=== PATIENT | female | born 1960 | race Caucasian/White ===

== ENCOUNTER 2018-01-06 20:42 | Inpatient (IN) | payer SELFPAY ==
[2018-01-06] MEDS ORDERED: RSI MEDICATION KIT IV ONE (21:03)
[2018-01-06] MEDS ORDERED: PROPOFOL 1,000 MG/100 ML VIAL IV ONE (21:17)
[2018-01-06] MEDS ORDERED: NA CHLORIDE 0.9% 1,000 ML ONE ×2 (21:21→23:47)
--- NOTE | 2018-01-06 21:27 | RAD REPORT ---
EXAM DESCRIPTION: Mitchell Single View01/06/2018 9:13 pm CLINICAL HISTORY: Chest pain COMPARISON: none FINDINGS: The lungs appear clear of acute infiltrate. The heart is normal size. The lungs are hyper aerated Postsurgical changes involve the chest. An endotracheal tube has its tip several centimeters above the marline. An orogastric tube is present within the stomach. The tip is not included in the field of view and likely either lies within distal stomach or proximal duodenum
[2018-01-06] MEDS ORDERED: ALBUTEROL 2.5 MG/3 ML NEB SOL ONE (21:28)
[2018-01-06 21:34] LABS: Absolute Lymphocytes (CBC) 7.3 K/uL (0.7-4.9); Absolute Monocytes 0.4 K/uL (0.1-1.3); Absolute Neutrophil 6.2 K/uL (1.8-8.0); Basophils % 0.5 % (0-1.3); Eosinophils % 0.9 % (0-4.4); Lymphocytes % 51.8 % (15.3-44.8); MCH 30.5 pg (27.0-35.0); MCV 92.8 fL (80-100); MPV 9.7 fL (7.6-11.3); Monocytes % 3.1 % (3.3-12.3); RBC Red Blood Cell Count 4.63 M/uL (3.86-4.86)
[2018-01-06] MEDS ORDERED: MIDAZOLAM HCL 2 MG/2 ML INJ ONE ×2 (21:39→23:19)
[2018-01-06 21:40] LABS: Protime INR 1.04
[2018-01-06 21:41] LABS: Urine Blood 1+ (NEG); Urine Glucose NEGATIVE (NEG); Urine Protein 2+ (NEG); Urine Specific Gravity 1.025 (1.005-1.030)
[2018-01-06 21:48] LABS: Potassium 5.3 mEq/L (3.6-5.0)
[2018-01-06 21:56] LABS: Albumin 3.4 g/dL (3.2-5.5); Bilirubin Direct 0.2 mg/dL (0-0.2); Bilirubin Total 0.5 mg/dL (0.3-1.2); Magnesium 2.2 mg/dL (1.8-2.5); Protein, Total 5.9 g/dL (6.0-8.3)
[2018-01-06] MEDS ORDERED: FOSPHENYTOIN PE 500 MG/10 ML VIAL ONE (21:57)
[2018-01-06] MEDS ORDERED: NA CHLORIDE 0.9% 100 ML IV ONE (21:57)
[2018-01-06] MEDS ORDERED: LEVETIRACETAM 500 MG/5 ML VIAL IV ONE (21:59)
[2018-01-06 22:14] LABS: Blood Morphology Comment NOT SEEN (NOT SEEN); Platelet Estimate ADEQ
[2018-01-06] MEDS ORDERED: MIDAZOLAM HCL 100 MG/NS 100 ML IV PRN ×2 (22:32)
[2018-01-06] MEDS ORDERED: FENTANYL/NS PCA 500 MCG/50 ML SYR IV PRN (22:33)
[2018-01-06] MEDS ORDERED: FENTANYL CITR 100 MCG/2 ML ONE (23:19)
[2018-01-06] MEDS ORDERED: PIPER/TAZO/NS 3.375gm 3.375 GM/100 ML BAG ONE (23:47)
--- NOTE | 2018-01-06 23:54 | ER ---
Nurse's Notes [facility] Name: Ave Mckeon Age: 57 yrs Sex: Female : 1960 Arrival Date: 01/06/2018 Time: 20:48 Bed 3 Private MD: Diagnosis: Cardiac arrest Presentation: 01/06 20:40 Presenting complaint: EMS states: Patient had unknown down time after receiving tone of lp1 patient feeling short of breath, CPR initiated at 1999, ROSC at 2039 after 6 rounds of Epinephrine, 80 of Bicarb; intubated;. Transition of care: patient was not received from another setting of care. Onset of symptoms was 1999. Care prior to arrival: Assisted ventilation, Oral intubation, CPR performed by EMS Glucose check: 173 IO to right leg. 20:40 Method Of Arrival: EMS: [facility] lp1 20:40 Acuity: DHAVAL 1 lp1 DEVELOPMENT ADVISOR: 01/07 00:13 Unknown DEVELOPMENT ADVISOR lp1 Historical: - Allergies: 01/06 23:09 Unable to obtain; lp1 - Home Meds: 23:09 Unable to obtain [Active]; lp1 - PMHx: 20:54 COPD; lp1 23:09 Myocardial infarction; CVA; lp1 - PSHx: 23:09 Unable to obtain; lp1 - Immunization history:: Adult Immunizations unknown. - Social history:: Smoking status: unknown. Screenin:26 Abuse screen: Denies threats or abuse. Denies injuries from another. Fall Risk Total lp1 Taylor Fall Scale indicates High Risk Score (45 or more points). Fall prevention measures have been instituted. Side Rails Up X 2 Placed Close to Nursing Station Frequent Obs/Assessments Occuring. 23:09 Nutritional screening: No deficits noted. Tuberculosis screening: No symptoms or risk lp1 factors identified. Assessment: 21:00 General: Appears Unresponsive. Behavior is unresponsive. Pain: Unable to use pain lp1 scale. Patient is intubated. Neuro: Level of Consciousness is unresponsive, Pupils are sluggish. Cardiovascular: Heart tones present Capillary refill is brisk in bilateral fingers toes Rhythm is sinus rhythm. Respiratory: Airway via oral intubation Trachea midline Respiratory effort is even, Respiratory pattern is symmetrical, Breath sounds are diminished bilaterally. GI: Abdomen is obese, Oral gastric tube in place, to suction. Bowel sounds present X 4 quads. : Mitchell in place to gravity drainage. EENT:. EENT: No deficits noted. Derm: Skin is intact, Skin is dry, Skin is pale. Musculoskeletal: Range of motion: intact in all extremities. 21:30 Reassessment: Linens changed, large BM noted. lp1 22:00 Neuro: Seizure activity noted at this time. RAH Han at bedside, observed eye lp1 twitching, tremors to arms; Verbal order given to administer Keppra IV at this time. 22:30 Reassessment: Patient noted to have 2nd large,loose BM, clean linens applied at this lp1 time; Verbal order by Provider for rectal tube placement. 23:00 Reassessment: Patient continuing to have seizure like activity, agitated by lp1 stimulation, Provider at bedside; verbal order to administer versed 3mg IV, Fentanyl 100 mcg IV. 23:45 Reassessment:. General: Behavior is calm. General: Behavior is unresponsive. lp1 Cardiovascular: Capillary refill is brisk. Respiratory: Respiratory effort is even. Derm: Skin is dry, Skin is normal, Skin temperature is warm. 01/07 00:00 Reassessment: Family at bedside at this time; decreased tremors, agitation to patient lp1 after administering Fentanyl and Versed infusions. 00:45 Reassessment: Drop in BP to 78/68; Provider at bedside; Verbal order given to lp1 administer Levophed IV. 01:00 Reassessment: Dr. Vilchis at bedside with RAH Han to assess patient; verbal order lp1 given to administer Dopamine IV infusion, Solu-Cortef 100mg IV; DC IV Versed infusion. 01:30 Reassessment: Code status discuss with patient's son and sister at this time, family lp1 expressed feeing of DNR status, RAH Han at bedside. Vital Signs: 04 20:41 BP 145 / 119; Pulse 131; Pulse Ox 100% on BVM; lp1 20:45 BP 121 / 81; Pulse 133; Resp 26; Pulse Ox 99% on BVM; lp1 21:00 BP 102 / 87; Pulse 130; Resp 22; Pulse Ox 97% on ETT vent; Weight 90.72 kg; lp1 21:20 BP 129 / 84; Pulse 91; Resp 16; Temp 98.7(C); Pulse Ox 95% on 100% FiO2 ETT vent; lp1 22:00 BP 130 / 78; Pulse 115; Resp 20; Temp 98.4(C); Pulse Ox 100% on 100% FiO2 ETT vent; lp1 22:20 BP 124 / 92; Pulse 114; Resp 19; Temp 98.1(C); Pulse Ox 99% on 100% FiO2 ETT vent; lp1 22:45 BP 140 / 91; Pulse 119; Resp 22; Temp 97.7(C); Pulse Ox 98% on 100% FiO2 ETT vent; lp1 23:00 BP 108 / 86; Pulse 113; Resp 16; Temp 97.6(C); Pulse Ox 98% on 100% FiO2 ETT vent; lp1 23:30 BP 121 / 92; Pulse 109; Resp 22; Temp 97.5(C); Pulse Ox 97% on 100% FiO2 ETT vent; lp1 01/07 00:00 BP 109 / 80; Pulse 99; Resp 14; Temp 97.6(C); Pulse Ox 99% on 100% FiO2 ETT vent; lp1 00:15 BP 95 / 71; Pulse 97; Resp 16; Temp 96.7(C); Pulse Ox 99% on 100% FiO2 ETT vent; lp1 00:45 BP 78 / 68; Pulse 102; Resp 20; Temp 96.4(C); Pulse Ox 98% on 50% FiO2 ETT vent; lp1 00:50 BP 55 / 47; Pulse 102; Resp 20; Temp 96.3(C); Pulse Ox 98% on 50% FiO2 ETT vent; lp1 00:55 BP 87 / 69; Pulse 100; Resp 20; Temp 96.3(C); Pulse Ox 98% on 50% FiO2 ETT vent; lp1 00:56 BP 75 / 62; Pulse 98; Resp 20; Temp 96.3(C); Pulse Ox 98% on 50% FiO2 ETT vent; lp1 00:58 BP 79 / 58; Pulse 97; Resp 18; Temp 96.2(C); Pulse Ox 99% on 50% FiO2 ETT vent; lp1 01:00 BP 85 / 74; Pulse 93; Resp 20; Temp 96.2(C); Pulse Ox 100% on 50% FiO2 ETT vent; lp1 01:05 BP 88 / 75; Pulse 92; Resp 20; Temp 96.2(C); Pulse Ox 99% on 50% FiO2 ETT vent; lp1 01:10 BP 145 / 82; Pulse 106; Resp 20; Temp 96.2(C); Pulse Ox 99% on 50% FiO2 ETT vent; lp1 01:15 BP 150 / 86; Pulse 122; Resp 20; Temp 96.2(C); Pulse Ox 99% on 50% FiO2 ETT vent; lp1 01:25 BP 142 / 87; Pulse 138; Resp 20; Temp 96.0(C); Pulse Ox 100% on 50% FiO2 ETT vent; lp1 01:30 BP 149 / 95; Pulse 135; Resp 20; Temp 96.0(C); Pulse Ox 100% on 50% FiO2 ETT vent; lp1 01:45 BP 137 / 63; Pulse 130; Resp 20; Temp 96.3(C); Pulse Ox 100% on 50% FiO2 ETT vent; lp1 02:00 BP 109 / 73; Pulse 128; Resp 20; Temp 97.2(C); Pulse Ox 99% on 50% FiO2 ETT vent; lp1 01/06 21:00 Vent settings: Tidal volume 500, Rate of 16, FiO2 100%, PEEP 5 lp1 01/07 00:15 Grupo hugger applied lp1 ED Course: 01/06 20:45 Missed attempt(s): 20 gauge in right antecubital area. By tech. Brad lp1 20:46 Assisted provider with intubation using 7.5 mm ETT via oral route. ET tube secured at lp1 23cm at the lips. Set up intubation tray. Intubated by Dg MONREAL Placement verified by CXR, CO2 detector w/ + color change, auscultating bilateral breath sounds. 20:47 Inserted saline lock: 22 gauge in right hand, using aseptic technique. Blood collected. lp1 By Judy Watts RN. 20:48 Patient arrived in ED. bb 20:48 Dg Hope PA is PHCP. jr8 20:48 Agustín Ward MD is Attending Physician. jr8 20:50 EKG done, by ED staff, reviewed by Dg MONREAL. lp1 20:53 NGT: inserted 16 Fr. other Oral verified placement of air over stomach, verified return lp1 of gastric contents, Placement verified by X-ray, to intermittent suction. Returned gastric contents. 20:54 Belinda Padron, RN is Primary Nurse. lp1 21:00 Mitchell cath inserted, using sterile technique, 16 Fr., by component design engineer, balloon inflated, to lp1 gravity drainage, urine specimen collected. 21:00 Patient has correct armband on for positive identification. Placed in gown. Bed in low lp1 position. Side rails up X2. clinical research monitor on. Pulse ox on. NIBP on. 21:02 Triage completed. lp1 21:11 XRAY Chest (1 view) In Process Unspecified. EDMS 21:23 Arm band placed on left wrist. lp1 21:54 Notified ED physician of a critical lab result(s). Lactate 98.3. kl 22:18 CT Head C Spine In Process Unspecified. EDMS 22:50 Rectal tube administered at this time. lp1 23:15 Assisted provider with central line placement. Set up central line tray. Triple lumen lp1 line placed in right femoral. Line placed by Dg MONREAL Placement verified by blood return, Dressed with Tegaderm, Blood was collected. 23:30 Accessed IO access to right leg DC'd at this time. lp1 23:52 Isiah Vilchis MD is Hospitalizing Provider. jr8 01/07 02:17 Patient admitted, IV remains in place. lp1 Administered Medications: 01/06 20:45 Drug: Succinylcholine 70 mg {Note: IO to right leg.} Route: IVP; Site: Other; lp1 21:25 Follow up: Response: No adverse reaction lp1 21:10 Drug: Albuterol 2.5 mg Route: Inhalation; lp1 21:23 Drug: Versed 4 mg Route: IVP; Site: right hand; lp1 21:30 Follow up: Response: Marked relief of symptoms lp1 21:30 Drug: Albuterol 2.5 mg Route: Inhalation; lp1 21:45 Drug: Albuterol 2.5 mg Route: Inhalation; lp1 22:00 Drug: Keppra 1000 mg {Note: By uJdy Watts RN.} Route: IV; Rate: calculated rate; lp1 Site: right hand; 22:30 Follow up: IV Status: Completed infusion lp1 22:12 CANCELLED (Physician Discretion): Propofol 5 mcg/kg/min IV at calculated rate jr8 continuous; titrate per protocol (titrate by 5-10mcg/kg/min every 10 min to max rate of 50 mcg/kg/min) 23:00 Drug: Versed 3 mg Route: IVP; Site: right hand; lp1 23:30 Follow up: Response: Marked relief of symptoms lp1 23:00 Drug: fentaNYL (PF) 100 mcg Route: IVP; Site: right hand; lp1 23:30 Follow up: Response: Marked relief of symptoms lp1 23:38 Drug: fentaNYL (PF) 1 mcg/kg/h Route: IV; Rate: calculated rate; Site: right femoral; lp1 01/07 00:06 Follow up: IV Status: Infusion continued upon admission lp1 01/06 23:40 Drug: Versed 0.1 mg/kg Route: IV; Rate: calculated rate; Site: right femoral; lp1 01/07 00:06 Follow up: IV Status: Infusion continued upon admission lp1 01/06 23:40 Drug: Zosyn 3.375 grams Route: IVPB; Infused Over: 60 mins; Site: right femoral; lp1 01/07 00:31 Follow up: IV Status: Completed infusion lp1 01/06 23:40 Drug: NS 0.9% 1000 ml Route: IV; Rate: 1000 ml; Site: right femoral; lp1 02 02:16 Follow up: IV Status: Completed infusion lp1 00:31 Drug: vancoMYCIN 1 grams Route: IVPB; Infused Over: 2 hrs; Site: right femoral; lp1 02:17 Follow up: IV Status: Infusion continued upon admission lp1 02:17 Drug: NS 0.9% 1000 ml Route: IV; Rate: 75 ml/hr; Site: right femoral; lp1 02:17 Follow up: IV Status: Infusion continued upon admission lp1 Point of Care Testing: Blood Glucose: 01/06 20:55 Blood Glucose: 195 mg/dL; lp1 Ranges: Outcome: 23:53 Decision to Hospitalize by Provider. jr8 01/07 02:18 critical lp1 Instructed on the need for admit. 02:30 Admitted to ICU accompanied by nurse, via stretcher, room 3, with oxygen, on monitor, lp1 with chart, Report called to MARIELOS Valero 02:45 Patient left the ED. lp1 Signatures: Dispatcher [employer] EDMS Jenni Barth RN RN Judy Wynne RN RN bb Pena, Laura, RN RN lp1 Dg Hope PA PA jr8 Corrections: (The following items were deleted from the chart) 01/06 21:24 21:00 BP 102 / 87; Pulse 130bpm; Resp 22bpm; Pulse Ox 97% ET / Ventilator; lp1 lp1 21:26 21:00 BP 102 / 87; Pulse 130bpm; Resp 22bpm; Pulse Ox 97% ET / Ventilator; 90.72 kg; lp1lp1 01/07 03:43 03:42 Patient left the ED. lp1 lp1 04:04 01:00 Reassessment: Dr. Vilchis at bedside with RAH Han to assess patient; verbal lp1 order given to administer Dopamine IV infusion, Solu-Cortef 100mg IV lp1
--- NOTE | 2018-01-06 23:54 | EDPHYS ---
Physician Documentation [facility] Name: Ave Mckeon Age: 57 yrs Sex: Female : 1960 Arrival Date: 01/06/2018 Time: 20:48 Bed 3 Private MD: ED Physician Agustín Ward HPI: 01/06 22:32 This 57 yrs old Female presents to ER via EMS with complaints of CPR. jr8 22:32 Preceding the arrest, the patient was found down by employer family. The arrest jr8 [address] of work. Pre-hospital course: The arrest was not witnessed by others. Bystanders at the scene performed CPR. EMS care prior to arrival: initiation of ACLS, peripheral IV, was successfully placed. oxygen, by BVM to assist ventilations. mickie tube. backboard, ACLS details: Initial rhythm was asystole. Medications given by EMS prior to arrival - Epinephrine IV x 6 doses, Response to therapy: return of rhythm, return of pulse. It is unknown whether or not the patient has had similar symptoms in the past. It is unknown whether or not the patient has recently seen a physician. 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 Was found down in kitchen. Unknown downtime. Was able to achieve ROSC . FOOD SERVICE TRAY ATTENDANT: 01/07 00:13 Unknown FOOD SERVICE TRAY ATTENDANT lp1 Historical: - Allergies: 01/06 23:09 Unable to obtain; lp1 - Home Meds: 23:09 Unable to obtain [Active]; lp1 - PMHx: 20:54 COPD; lp1 23:09 Myocardial infarction; CVA; lp1 - PSHx: 23:09 Unable to obtain; lp1 - Immunization history:: Adult Immunizations unknown. - Social history:: Smoking status: unknown. ROS: 22:32 Unable to obtain ROS due to patient is on ventilator. jr8 Exam: 22:32 Head/Face: Normocephalic, atraumatic. Eyes: Pupils equal round and reactive to light, jr8 Lids and lashes normal. Conjunctiva and sclera are non-icteric and not injected. Cornea within normal limits. Periorbital areas with no swelling, redness, or edema. ENT: Oropharynx with no redness, swelling, or masses, exudates, or evidence of obstruction, uvula midline. Mucous membranes moist. Mild amount of vomitus in oropharynx Neck: Trachea midline, no thyromegaly or masses palpated, and no cervical lymphadenopathy. Supple Chest/axilla: Normal chest wall appearance and motion. Bypass scar present Cardiovascular: Sinus Tachycardia with a normal S1 and S2. No gallops, murmurs, or rubs. Normal PMI, no JVD. No pulse deficits. Respiratory: Lungs have equal breath sounds bilaterally, clear to auscultation and percussion. No rales, rhonchi or wheezes noted. On Ventilator Abdomen/GI: Soft, No distension or tympany. Skin: Warm, dry with normal turgor. Normal color with no rashes, no lesions, and no evidence of cellulitis. 22:32 Neuro: Intubated with a GCS of 3T . Vital Signs: 20:41 BP 145 / 119; Pulse 131; Pulse Ox 100% on BVM; lp1 20:45 BP 121 / 81; Pulse 133; Resp 26; Pulse Ox 99% on BVM; lp1 21:00 BP 102 / 87; Pulse 130; Resp 22; Pulse Ox 97% on ETT vent; Weight 90.72 kg; lp1 21:20 BP 129 / 84; Pulse 91; Resp 16; Temp 98.7(C); Pulse Ox 95% on 100% FiO2 ETT vent; lp1 22:00 BP 130 / 78; Pulse 115; Resp 20; Temp 98.4(C); Pulse Ox 100% on 100% FiO2 ETT vent; lp1 22:20 BP 124 / 92; Pulse 114; Resp 19; Temp 98.1(C); Pulse Ox 99% on 100% FiO2 ETT vent; lp1 22:45 BP 140 / 91; Pulse 119; Resp 22; Temp 97.7(C); Pulse Ox 98% on 100% FiO2 ETT vent; lp1 23:00 BP 108 / 86; Pulse 113; Resp 16; Temp 97.6(C); Pulse Ox 98% on 100% FiO2 ETT vent; lp1 23:30 BP 121 / 92; Pulse 109; Resp 22; Temp 97.5(C); Pulse Ox 97% on 100% FiO2 ETT vent; lp1 01/07 00:00 BP 109 / 80; Pulse 99; Resp 14; Temp 97.6(C); Pulse Ox 99% on 100% FiO2 ETT vent; lp1 00:15 BP 95 / 71; Pulse 97; Resp 16; Temp 96.7(C); Pulse Ox 99% on 100% FiO2 ETT vent; lp1 00:45 BP 78 / 68; Pulse 102; Resp 20; Temp 96.4(C); Pulse Ox 98% on 50% FiO2 ETT vent; lp1 00:50 BP 55 / 47; Pulse 102; Resp 20; Temp 96.3(C); Pulse Ox 98% on 50% FiO2 ETT vent; lp1 00:55 BP 87 / 69; Pulse 100; Resp 20; Temp 96.3(C); Pulse Ox 98% on 50% FiO2 ETT vent; lp1 00:56 BP 75 / 62; Pulse 98; Resp 20; Temp 96.3(C); Pulse Ox 98% on 50% FiO2 ETT vent; lp1 00:58 BP 79 / 58; Pulse 97; Resp 18; Temp 96.2(C); Pulse Ox 99% on 50% FiO2 ETT vent; lp1 01:00 BP 85 / 74; Pulse 93; Resp 20; Temp 96.2(C); Pulse Ox 100% on 50% FiO2 ETT vent; lp1 01:05 BP 88 / 75; Pulse 92; Resp 20; Temp 96.2(C); Pulse Ox 99% on 50% FiO2 ETT vent; lp1 01:10 BP 145 / 82; Pulse 106; Resp 20; Temp 96.2(C); Pulse Ox 99% on 50% FiO2 ETT vent; lp1 01:15 BP 150 / 86; Pulse 122; Resp 20; Temp 96.2(C); Pulse Ox 99% on 50% FiO2 ETT vent; lp1 01:25 BP 142 / 87; Pulse 138; Resp 20; Temp 96.0(C); Pulse Ox 100% on 50% FiO2 ETT vent; lp1 01:30 BP 149 / 95; Pulse 135; Resp 20; Temp 96.0(C); Pulse Ox 100% on 50% FiO2 ETT vent; lp1 01:45 BP 137 / 63; Pulse 130; Resp 20; Temp 96.3(C); Pulse Ox 100% on 50% FiO2 ETT vent; lp1 02:00 BP 109 / 73; Pulse 128; Resp 20; Temp 97.2(C); Pulse Ox 99% on 50% FiO2 ETT vent; lp1 01/06 21:00 Vent settings: Tidal volume 500, Rate of 16, FiO2 100%, PEEP 5 lp1 01/07 00:15 Grupo hugger applied lp1 Procedures: 01:18 Intubation: Ventilated with 100% NRB prior to procedure. O2 saturation prior to jr8 procedure was 99 %. Intubated orally using # 4 Melinda blade with 7.5 mm ETT. was successful on first attempt. Ventilated with ventilator. Tube secured with ETT bullard measured 23 cm at lip. Placement verified by CXR, CO2 detector with (+) color change, auscultating bilateral breath sounds, O2 saturation after procedure was 100 %. Patient tolerated well. Central Line: the site was prepped with Betadine, in sterile fashion, a triple lumen catheter was inserted, in the right femoral vein, in 1 attempts. placement was verified, by blood return, the site was dressed with 4X4s, Tegaderm, foam tape, using sterile technique, the patient tolerated the procedure, well. MDM: 01/06 20:48 Patient medically screened. 8 23:51 Data reviewed: vital signs, nurses notes, lab test result(s), EKG, radiologic studies, [facility] CT scan, plain films, and as a result, I will admit patient. Data interpreted: Pulse oximetry: on ventilator is 100 %. Interpretation: normal. Counseling: I had a detailed discussion with the patient and/or guardian regarding: the historical points, exam findings, and any diagnostic results supporting the discharge/admit diagnosis, lab results, radiology results, the need for further work-up and treatment in the hospital. Physician consultation: Eugene Marion MD was called at 23:51, was contacted at 23:51, regarding consult, patient's condition, and will see patient in unit. ED course: Dr. Vilchis called and accepted patient . 01/06 20:48 Order name: Basic Metabolic Panel; Complete Time: 22:17 8 01/06 20:48 Order name: BNP; Complete Time: 22:17 8 01/06 20:48 Order name: CBC with Diff; Complete Time: 22:17 8 01/06 20:48 Order name: Ckmb; Complete Time: 22:17 [facility] 01/06 20:48 Order name: CPK; Complete Time: 22:17 8 01/06 20:48 Order name: LFT's; Complete Time: 22:17 [facility] 01/06 20:48 Order name: Magnesium; Complete Time: 22:17 [facility] 01/06 20:48 Order name: PT-INR; Complete Time: 21:43 [facility] 01/06 20:48 Order name: Ptt, Activated; Complete Time: 21:43 [facility] 01/06 20:48 Order name: Troponin (emerg Dept Use Only); Complete Time: 22:17 [facility] 01/06 20:48 Order name: Blood Culture Adult (2) [facility] 01/06 20:48 Order name: Lactate; Complete Time: 22:17 [facility] 01/06 21:33 Order name: Urine Dipstick--Ancillary (enter results); Complete Time: 21:43 [facility] 01/06 21:37 Order name: Manual Differential; Complete Time: 22:17 [facility] 01/06 20:48 Order name: XRAY Chest (1 view); Complete Time: 21:29 [facility] 01/06 21:43 Order name: CT Head C Spine; Complete Time: 15:02 [facility] 01/06 22:15 Order name: Slides for Pathologist Review EDAL 01/07 00:17 Order name: ABG; Complete Time: 00:28 2 01/07 00:32 Order name: EEG Request EDAL 01/07 02:16 Order name: Lactate lp1 01/07 03:20 Order name: Glucose, Ancillary Testing; Complete Time: 15:02 [facility] 01/07 03:25 Order name: Lactate Sepsis 2 HR Follow-up; Complete Time: 15:02 [facility] 01/06 20:48 Order name: EKG; Complete Time: 20:49 8 01/06 20:48 Order name: Cardiac monitoring; Complete Time: 21:20 [facility] 01/06 20:48 Order name: EKG - Nurse/Tech; Complete Time: 21:20 [facility] 01/06 20:48 Order name: IV Saline Lock; Complete Time: 21:20 [facility] 01/06 20:48 Order name: Labs collected and sent; Complete Time: 21:20 [facility] 01/06 20:48 Order name: O2 Per Protocol; Complete Time: 21:21 [facility] 01/06 20:48 Order name: O2 Sat Monitoring; Complete Time: 21:21 01/06 20:48 Order name: Urine Dipstick-Ancillary (obtain specimen); Complete Time: 21:34 01/06 20:50 Order name: Mitchell; Complete Time: 21:20 01/06 20:50 Order name: NG Tube; Complete Time: 21:20 01/07 00:32 Order name: CONS Physician Consult EDMS Administered Medications: 20:45 Drug: Succinylcholine 70 mg {Note: IO to right leg.} Route: IVP; Site: Other; lp1 21:25 Follow up: Response: No adverse reaction lp1 21:10 Drug: Albuterol 2.5 mg Route: Inhalation; lp1 21:23 Drug: Versed 4 mg Route: IVP; Site: right hand; lp1 21:30 Follow up: Response: Marked relief of symptoms lp1 21:30 Drug: Albuterol 2.5 mg Route: Inhalation; lp1 21:45 Drug: Albuterol 2.5 mg Route: Inhalation; lp1 22:00 Drug: Keppra 1000 mg {Note: By Judy Watts RN.} Route: IV; Rate: calculated rate; lp1 Site: right hand; 22:30 Follow up: IV Status: Completed infusion lp1 22:12 CANCELLED (Physician Discretion): Propofol 5 mcg/kg/min IV at calculated rate jr8 continuous; titrate per protocol (titrate by 5-10mcg/kg/min every 10 min to max rate of 50 mcg/kg/min) 23:00 Drug: Versed 3 mg Route: IVP; Site: right hand; lp1 23:30 Follow up: Response: Marked relief of symptoms lp1 23:00 Drug: fentaNYL (PF) 100 mcg Route: IVP; Site: right hand; lp1 23:30 Follow up: Response: Marked relief of symptoms lp1 23:38 Drug: fentaNYL (PF) 1 mcg/kg/h Route: IV; Rate: calculated rate; Site: right femoral; lp1 01/07 00:06 Follow up: IV Status: Infusion continued upon admission lp1 01/06 23:40 Drug: Versed 0.1 mg/kg Route: IV; Rate: calculated rate; Site: right femoral; lp1 04/02 00:06 Follow up: IV Status: Infusion continued upon admission lp1 01/06 23:40 Drug: Zosyn 3.375 grams Route: IVPB; Infused Over: 60 mins; Site: right femoral; lp1 01/07 00:31 Follow up: IV Status: Completed infusion lp1 01/06 23:40 Drug: NS 0.9% 1000 ml Route: IV; Rate: 1000 ml; Site: right femoral; lp1 01/07 02:16 Follow up: IV Status: Completed infusion lp1 00:31 Drug: vancoMYCIN 1 grams Route: IVPB; Infused Over: 2 hrs; Site: right femoral; lp1 02:17 Follow up: IV Status: Infusion continued upon admission lp1 02:17 Drug: NS 0.9% 1000 ml Route: IV; Rate: 75 ml/hr; Site: right femoral; lp1 02:17 Follow up: IV Status: Infusion continued upon admission lp1 Point of Care Testing: Blood Glucose: 01/06 20:55 Blood Glucose: 195 mg/dL; lp1 Ranges: Critical Glucose Levels:Adult <50 mg/dl or >400 mg/dl <40 mg/dl or >180 mg/dl Disposition: 23:53 Critical Care:. jr8 01/07 05:35 Co-signature as Attending Physician, Agustín Ward MD. [email or web address] Disposition: 01/06/18 23:53 Hospitalization ordered by Isiah Vilchis for Inpatient Admission. Preliminary diagnosis is Cardiac arrest. - Bed requested for Intensive Care Unit. - Status is Inpatient Admission. lp1 - Condition is Serious. - Problem is new. - Symptoms are unchanged. UTI on Admission? No Critical care time excluding procedures: 01/06 23:53 Critical care time: Bedside Care: 20 minutes, Consultation: 20 minutes, Family jr8 Intervention: 20 minutes. Total time: 60 minutes Signatures: Dispatcher [employer] Jenni Barbour RN RN kl Lam, Pin, MD MD pkBelinda Menezes RN RN lp1 Dg Hope PA PA jr8 Corrections: (The following items were deleted from the chart) 22:12 20:50 Propofol 5 mcg/kg/min IV at calculated rate continuous; titrate per protocol jr8 (titrate by 5-10mcg/kg/min every 10 min to max rate of 50 mcg/kg/min) ordered. jr8
[2018-01-07 00:27] LABS: Arterial Blood Carboxyhemoglob 0.6 % (0-1.5); Blood Gas Oxyhemoglobin 98.3 % (94-97); Blood O2 Saturation 99.6 % (92-98.5)
[2018-01-07] MEDS ORDERED: VANCOMYCIN/NS 1 gm 1 GM/250 ML BAG ONE (00:40)
[2018-01-07] MEDS ORDERED: NOREPINEPHRINE 4mg/D5W 250mL 4 MG/250 ML BAG IV ONE (00:55)
[2018-01-07] MEDS ORDERED: HYDROCORTISONE SUC 100 MG INJ ONE (01:19)
[2018-01-07] MEDS ORDERED: DOPAMINE/D5W 400 MG/250 ML BAG IV ONE (01:19)
[2018-01-07] MEDS: ALBUTEROL 2.5 MG/3 ML NEB SOL NEB SCH ×4 (02:00→19:35)
[2018-01-07] MEDS: D5W 1,000 ML with NA BICARB 8.4% 50 MEQ IV SCH ×4 (02:00→11:28)
[2018-01-07] MEDS: IPRATROPIUM BROM 0.5MG/2.5ML NEB SCH ×4 (02:00→19:35)
[2018-01-07] MEDS ORDERED: DOPAMINE/D5W 400 MG/250 ML BAG IV PRN (03:00)
[2018-01-07] MEDS ORDERED: VALPROATE SODIUM INJ 500 MG in NA CHLORIDE 0.9% 100 ML IV ONE (03:00)
[2018-01-07] MEDS ORDERED: NOREPINEPHRINE 4 MG in D5W 250 ML IV PRN (03:00)
[2018-01-07] MEDS ORDERED: D5W 1,000 ML IV ONE (03:23)
[2018-01-07] MEDS ORDERED: VALPROATE NA 500 MG/5 ML INJ IV ONE (03:40)
[2018-01-07] MEDS ORDERED: NA CHLORIDE 0.9% 100 ML ONE ×2 (03:44→06:35)
[2018-01-07] MEDS ORDERED: D5W 250 ML IV ONE (04:19)
[2018-01-07] MEDS ORDERED: NOREPINEPHRINE 4 MG/4 ML VIAL ONE (04:19)
[2018-01-07] MEDS: ONDANSETRON 4 MG/2 ML VIAL IV PRN ×2 (04:30→09:49)
[2018-01-07] MEDS ORDERED: LORazepam 2 MG/ML VIAL IV ONE (04:39)
[2018-01-07 05:34] LABS: Arterial Blood Carboxyhemoglob 1.1 % (0-1.5); Blood O2 Saturation 98.8 % (92-98.5)
[2018-01-07] MEDS: levETIRAcetam 500 MG in NA CHLORIDE 0.9% 100 ML IV SCH ×2 (06:24→18:21)
[2018-01-07] MEDS ORDERED: LEVETIRACETAM 500 MG/5 ML VIAL IV ONE (06:34)
--- NOTE | 2018-01-07 07:06 | EKG ---
Test Date: 2018-01-06 Test Time: 20:53:16 Pediatric Speech Language Pathologist: MEASUREMENT RESULTS: Intervals: Rate: 133 NE: 122 QRSD: 60 QT: 276 QTc: 410 [place]: P: 75 NE: 122 QRS: 94 T: 88 INTERPRETIVE STATEMENTS: Sinus tachycardia Septal infarct, age undetermined Right atrial enlargement Abnormal ECG Compared to ECG 01/01/2006 06:38:21 myocardial infarct finding now present Sinus rhythm no longer present ST (T wave) deviation no longer present Electronically Signed On 01-07-18 07:06:20 CDT by Lazarus Monzon
--- NOTE | 2018-01-07 07:17 | P.HP ---
Certification for Inpatient Patient admitted to: Inpatient With expected LOS: >2 Midnights Patient will require the following post-hospital care: None Practitioner: I am a practitioner with admitting privileges, knowledge of patient current condition, hospital course, and medical plan of care. Services: Services provided to patient in accordance with Admission requirements found in Title 42 Section 412.3 of the Code of Federal Regulations Patient History Date of Service: 01/07/18 Reason for admission: Cardiac arrest History of Present Illness: Mrs. Mckeon is a 57-year-old female came into the hospital the cardiac arrest. Mrs. Mckeon was sitting with her hospice patient, when she suddenly became short of breath. Initially, 911 was called. Suddenly the Mrs. Mckeon collapsed. The hospice patient called 911 once again. EMS arrived and patient required chest compressions immediately. Patient was brought into the emergency room and there were able to finally established a pulse. Patient was started on numerous medications in the emergency room. Patient has started becoming hypotensive. Patient was admitted to the ICU. Initially, we stop the Versed said and fentanyl and added dopamine to patient's Levophed. Patient was given IV Hydrocortisone as well as an additional bolus. Patient blood pressure has improved. Currently systolic blood pressure is 150s. Will go ahead and start weaning off the dopamine drip and then also the Levophed drip. Pulmonary and Neurology consultation as well. Patient has a history of cardiac arrest x2 according to family. Both times patient has done well. The initial time patient required a double bypass. The 2nd time, patient had a stroke. Patient is still but her does not live with her anymore. They have 3 children who are present as well. They are on the same page that if they do not think patient will get better than they do not want anything further done. At this time will hold off on making her a DNR until we get more information regarding patient. Allergies No Allergy Information Available Allergy (Unverified 01/07/18 03:46) Unknown - Past Medical/Surgical History Diabetic: No -: [place] -: COPD -: Respiratory failure -: Double bypass surgery - Family History Mother Medical History: Heart disease Father Medical History: Hypertension, Lung disease, Diabetes, Stroke, Cancer - Social History Smoking Status: Former smoker Alcohol use: No CD- Drugs: No Caffeine use: Yes Place of Residence: Home Review of Systems is unable to be obtained Physical Examination - Vital Signs Temperature: 99.2 F Blood Pressure: 109/80 Pulse: 91 Respirations: 17 Pulse Ox (%): 98 - Physical Exam General: Unresponsive, Other (Intubated) HEENT: Atraumatic, PERRLA, Mucous membr. moist/pink, Other (ET tube in place), EOMI, Sclerae nonicteric Neck: Supple, 2+ carotid pulse no bruit, No LAD, Without JVD or thyroid abnormality Respiratory: Clear to auscultation bilaterally, Normal air movement Cardiovascular: Regular rate/rhythm, Normal S1 S2, Systolic murmur Gastrointestinal: Normal bowel sounds, Soft and benign, Non-distended, No tenderness Musculoskeletal: No clubbing, No swelling, No tenderness Integumentary: No rashes Neurological: Other (Patient is unresponsive; patient does not have a gag reflex ; pupils are constricted) Lymphatics: No axilla or inguinal lymphadenopathy - Studies Laboratory Data (last 24 hrs) 01/06/18 20:49: PT 12.3, INR 1.04, APTT 34.2 01/06/18 20:49: WBC 14.1 H, Hgb 14.1, Hct 43.0, Plt Count 212 01/06/18 20:49: B-Natriuretic Peptide 150 H 01/06/18 20:49: Sodium 144, Potassium 5.3 H, BUN 16, Creatinine 1.51 H, Glucose 230 H, Magnesium 2.2, Total Bilirubin 0.5, AST 166 H, ALT 76 H, Alkaline Phosphatase 64 Assessment & Plan - Problems (Diagnosis) (1) Cardiac arrest Current Visit: Yes Status: Acute (2) CAD (coronary artery disease) of bypass graft Current Visit: Yes Status: Acute (3) HTN (hypertension) Current Visit: Yes Status: Acute Qualifiers: Hypertension type: essential hypertension Qualified Code(s): I10 - Essential (primary) hypertension - Plan Plan: 1. Mechanical ventilation 2. Pulmonary consultation 3. Vasopressor support-plan a wean off the dopamine 1st and the Levophed 4. Neurology consultation 5. Keppra, fosphenytoin, and Depakote have been use use for myoclonic jerks. Patient became hypotensive with benzodiazepines. 6. Aggressive IV hydration IV bicarb for metabolic acidosis 7. Monitor labs closely and repeat in a.m. 8. GI and DVT prophylaxis Discharge Plan: Home Plan to discharge in: [facility] than 2 days - Advance Directives Does patient have a Living Will: No Does patient have a Durable POA for Healthcare: No - Code Status/Comfort Care Code Status Assessed: Yes Code Status: Full Code Critical Care: No Time Spent Managing PTS Care (In Minutes): 120
--- NOTE | 2018-01-07 07:22 | RAD REPORT ---
EXAM DESCRIPTION: CT - [id number] - 01/07/2018 6:25 am CLINICAL HISTORY: Found unresponsive, intubation, unknown injury A preliminary written report was provided at the time of the study, and the report was reviewed prio r to final dictation. COMPARISON: None. TECHNIQUE: Axial 5 mm thick images of the head were obtained. Axial 2 mm thick images of the cervic al spine were obtained with sagittal and coronal reconstruction images generated and reviewed. All CT scans are performed using dose optimization technique as appropriate and may include automated exposure control or mA/KV adjustment according to patient size. FINDINGS: No intracranial hemorrhage, mass, edema or acute intracranial finding. No suspicion for ac colt infarction. No extra-axial fluid collections. Mastoid air cells are clear. Paranasal sinus air-fl uid levels and nasal passage opacification are commonly associated with intubation and sinusitis shraddha ot be assessed. No globe or orbit abnormality seen. Cervical body height and alignment are normal. C4-5 and C5-6 disc space narrowing noted. No fracture or acute bony abnormality. No paraspinal mass or hematoma. IMPRESSION: Negative CT head examination for acute or significant finding. C4-5 and C5-6 mild spondylosis. No acute cervical spine finding.
[2018-01-07] MEDS: HYDROCORTISONE SUC 100 MG INJ IV SCH ×2 (08:31→20:33)
[2018-01-07] MEDS: ENOXAPARIN 40 MG/0.4 ML SQ SCH (08:32)
--- NOTE | 2018-01-07 08:43 | P.CNS ---
Date of Consult: 01/07/18 Reason for Consult: Status post cardiac arrest Chief Complaint: Cardiac arrest History of Present Illness: Patient is 57 years of age admitted with a cardiac arrest she underwent a prolonged CPR currently patient is coma toes generalized twitching observed possible seizure activity on a ventilator was weaned off the vasopressors history of coronary artery disease Allergies No Allergy Information Available Allergy (Unverified 01/07/18 03:46) Unknown - Past Medical/Surgical History Diabetic: No -: [place] -: COPD -: Respiratory failure -: Double bypass surgery - Family History Mother Medical History: Heart disease Father Medical History: Hypertension, Lung disease, Diabetes, Stroke, Cancer - Social History Smoking Status: Unknown if ever smoked Alcohol use: No CD- Drugs: No Caffeine use: Yes Place of Residence: Home Review of Systems is unable to be obtained Physical Examination Temp Pulse Resp BP Pulse Ox 99.2 F 91 H 17 109/80 98 01/07/18 07:44 01/07/18 07:44 01/07/18 07:44 01/07/18 07:44 01/07/18 07:44 General: Comatose (Coma toes) Respiratory: Clear to auscultation bilaterally Cardiovascular: No edema, Regular rate/rhythm Gastrointestinal: Normal bowel sounds, Soft and benign Laboratory Data (last 24 hrs) 01/06/18 20:49: PT 12.3, INR 1.04, APTT 34.2 01/06/18 20:49: WBC 14.1 H, Hgb 14.1, Hct 43.0, Plt Count 212 01/06/18 20:49: B-Natriuretic Peptide 150 H 01/06/18 20:49: Sodium 144, Potassium 5.3 H, BUN 16, Creatinine 1.51 H, Glucose 230 H, Magnesium 2.2, Total Bilirubin 0.5, AST 166 H, ALT 76 H, Alkaline Phosphatase 64 - Problems (1) Cardiac arrest Current Visit: Yes Status: Acute Plan: Patient is 57 years of age admitted with a cardiac arrest she has generalized but appears to be seizure activity EEGs pending patient is on antiseizure therapy right now I also suggest adding [place] after the EEGs done also start patient on thiamine labs reviewed patient was hypoxic hypercapnic mildly elevated white count chest x-ray is clear oxygenation satisfactory patient is off vasopressors prognosis very poor neurology consult pending
--- NOTE | 2018-01-07 08:49 | EKG ---
Test Date: 2018-01-06 Test Time: 21:10:40 Equities Analyst: MEASUREMENT RESULTS: Intervals: Rate: 127 [place]: 122 QRSD: 74 QT: 302 QTc: 438 [place]: P: 85 [place]: 122 QRS: 86 T: 80 INTERPRETIVE STATEMENTS: Sinus tachycardia Right atrial enlargement Borderline ECG Compared to ECG 01/06/2018 20:53:16 Myocardial infarct finding no longer present Electronically Signed On 01-07-18 08:48:25 CDT by Lazarus Monzon
[2018-01-07] MEDS: THIAMINE 200 MG/2 ML INJ IVP SCH (09:17)
[2018-01-07] MEDS: FENTANYL CITR 100 MCG/2 ML IV PRN (09:49)
[2018-01-07] MEDS: MIDAZOLAM HCL 100 MG in NA CHLORIDE 0.9% 80 ML IV PRN (10:16)
[2018-01-07] MEDS: PROMETHAZINE 25 MG/ML VIAL IV PRN ×2 (10:16→19:43)
--- NOTE | 2018-01-07 10:43 | P.PN ---
Subjective Date of Service: 01/07/18 Chief Complaint: Cardiac arrest Subjective: Other (Patient intubated. Patient with seizure-like activity.) Physical Examination - Vital Signs Temperature: 99.5 F Blood Pressure: 146/88 Pulse: 110 Respirations: 32 Pulse Ox (%): 96 - Physical Exam General: Other (Patient intubated at this time. Patient with seizure-like activity.) HEENT: Atraumatic Neck: Supple Respiratory: Clear to auscultation bilaterally, Normal air movement Cardiovascular: Normal pulses, Regular rate/rhythm Gastrointestinal: Normal bowel sounds, Soft and benign, Non-distended Musculoskeletal: No erythema, No tenderness, No warmth Integumentary: No erythema, No warmth, No cyanosis Neurological: Other (Patient with seizure-like activity. Generalized twitching noted throughout.) - Studies Laboratory Data (last 24 hrs) 01/06/18 20:49: PT 12.3, INR 1.04, APTT 34.2 01/06/18 20:49: WBC 14.1 H, Hgb 14.1, Hct 43.0, Plt Count 212 01/06/18 20:49: B-Natriuretic Peptide 150 H 01/06/18 20:49: Sodium 144, Potassium 5.3 H, BUN 16, Creatinine 1.51 H, Glucose 230 H, Magnesium 2.2, Total Bilirubin 0.5, AST 166 H, ALT 76 H, Alkaline Phosphatase 64 Medications List Reviewed: Yes Assessment & Plan - Problems (Diagnosis) (1) Seizure Current Visit: Yes Status: Acute Plan: Patient with no prior history of seizure disorder. Patient likely with anoxic encephalopathy after CPR. Patient had been down for several min. Family is not sure for how long the patient was down. Patient on Keppra at this time. EEG to be performed. Await further evaluation and recommendation from neurology. Family reports the patient did not want to be on life support if her condition continues to deteriorate. Will discuss further with Neurology. Patient on ventilator at this time. Will also discuss case with pulmonology and nephrology. (2) Anoxic encephalopathy Current Visit: Yes Status: Suspected Plan: Suspect anoxic encephalopathy. Await EEG. Will discuss further with Neurology. Continue with anti seizure medication. (3) CAD (coronary artery disease) of bypass graft Onset Date: 01/07/18 Current Visit: Yes Status: Chronic Plan: Patient with history of CAD. Will continue monitor closely. Qualifiers: [place] vs. transplanted heart: unspecified whether [place] or transplanted heart Associated angina: angina presence unspecified Qualified Code(s): I25.810 - Atherosclerosis of coronary artery bypass graft(s) without angina pectoris (4) Cardiac arrest Onset Date: 01/07/18 Current Visit: Yes Status: Acute Plan: Patient presented with cardiac arrest. Patient was initially in asystole. She was given several rounds of epinephrine. Patient now intubated. Will continue with above plan of care. Will discuss further with specialty care. (5) HTN (hypertension) Onset Date: 01/07/18 Current Visit: Yes Status: Chronic Plan: Will provide medication as needed. Patient initially hypotensive. She has been weaned off vasopressors. Qualifiers: Hypertension type: essential hypertension Qualified Code(s): I10 - Essential (primary) hypertension (6) Acute renal failure Current Visit: Yes Status: Acute Plan: Patient with acute renal failure, will continue with IV fluids. Nephrology consulted to further address. Will check renal ultrasound. Qualifiers: Acute renal failure type: unspecified Qualified Code(s): N17.9 - Acute kidney failure, unspecified (7) Elevated liver function tests Current Visit: Yes Status: Acute Plan: Elevated liver function elevated. Will check hepatitis panel. (8) COPD (chronic obstructive pulmonary disease) Current Visit: Yes Status: Chronic Plan: Patient with history of COPD. Will provide medication. Patient currently intubated at this time. Will discuss further with pulmonology. Qualifiers: COPD type: chronic bronchitis (9) Hyperkalemia Current Visit: Yes Status: Acute Plan: Will recheck and address appropriately. Discharge Plan: LTAC (LTAC if improved verses other) Plan to discharge in: Greater than 2 days Time Spent Managing Pts Care (In Minutes): 55
[2018-01-07] MEDS ORDERED: SUCCINYLCHOLINE 20 MG/ML (10 ML) IV ONE (11:06)
[2018-01-07 11:27] LABS: Absolute Lymphocytes (CBC) 0.9 K/uL (0.7-4.9); Absolute Monocytes 0.6 K/uL (0.1-1.3); Absolute Neutrophil 17.5 K/uL (1.8-8.0); Basophils % 0.4 % (0-1.3); Lymphocytes % 4.8 % (15.3-44.8); MCH 29.9 pg (27.0-35.0); MCV 90.1 fL (80-100); MPV 9.2 fL (7.6-11.3); Monocytes % 3.3 % (3.3-12.3); RBC Red Blood Cell Count 4.44 M/uL (3.86-4.86)
[2018-01-07 12:00] LABS: Albumin 3.3 g/dL (3.2-5.5); Bilirubin Total 0.8 mg/dL (0.3-1.2); Phosphorus 3.6 mg/dL (2.5-4.3); Potassium 3.9 mEq/L (3.6-5.0); Protein, Total 5.7 g/dL (6.0-8.3)
[2018-01-07 12:08] LABS: Magnesium 1.4 mg/dL (1.8-2.5)
[2018-01-07 12:12] LABS: Blood Morphology Comment NOTED (NOT SEEN); Platelet Estimate ADEQ; Urine White Blood Cell Casts OK
[2018-01-07 12:13] LABS: Stomatocytes 1+
[2018-01-07] MEDS ORDERED: Magnesium Sulfate 2gm IVPB 2 G/50 ML BAG IV ONE (12:20)
--- NOTE | 2018-01-07 15:08 | RAD REPORT ---
EXAM DESCRIPTION: US - Renal Ultrasound-Complete - 01/07/2018 2:50 pm CLINICAL HISTORY: Acute renal failure. COMPARISON: None. FINDINGS: Both kidneys are normal in size, shape and echotexture. The right kidney measures 9.0 x 4.4 x 4.2 cm. No hydronephrosis, focal mass or perinephric fluid. The left kidney measures 8.9 x 4.0 x 3.7 cm. No hydronephrosis, focal mass or perinephric fluid. IMPRESSION: Unremarkable renal sonogram.
--- NOTE | 2018-01-07 15:22 | ECHO ---
HEIGHT: 5 ft 3 in WEIGHT: 174 lb 9.6 oz DATE OF STUDY: 01/07/[address]: Antwon Conde DO 2-DIMENSIONAL: YES M.MODE: YES DOPPLER: YES COLOR FLOW: YES TDS: YES PORTABLE: NO DEFINITY: NO BUBBLE STUDY: NO DIAGNOSIS: STATUS POST CPR, CORONARY ARTERY DISEASE CARDIAC HISTORY: CATHERIZATION: NO SURGERY: NO PROSTHETIC VALVE: NO PACEMAKER: NO MEASUREMENTS (cm) DIASTOLIC (NORMALS) SYSTOLIC (NORMALS) IVSd (0.6-1.2) LA Diam 3.8 (1.9-4.0) LVEF % LVIDd (3.5-5.7) LVIDs (2.0-3.5) %FS % LVPWd (0.6-1.2) Ao Diam 2.7 (2.0-3.7) 2 DIMENSIONAL ASSESSMENT: RIGHT ATRIUM: NORMAL LEFT ATRIUM: NORMAL RIGHT VENTRICLE: NORMAL LEFT VENTRICLE: NORMAL TRICUSPID VALVE: NORMAL MITRAL VALVE: NORMAL PULMONIC VALVE: NORMAL AORTIC VALVE: NORMAL PERICARDIAL EFFUSION: NONE AORTIC ROOT: NORMAL LEFT VENTRICULAR WALL MOTION: NORMAL. DOPPLER/COLOR FLOW: MILD MITRAL REGURGITATION. COMMENTS: NORMAL 2D ECHO. MILD MITRAL REGURGITATION. TECHNICALLY DIFFICULT STUDY. TECHNOLOGIST: FRENCH FITZPATRICK
--- NOTE | 2018-01-07 16:14 | P.CNS ---
Date of Consult: 01/07/18 Reason for Consult: PIYUSH Requesting Physician: Antwon Conde Chief Complaint: Cardiac arrest History of Present Illness: Mrs. Mckeon is a 57-year-old female came into the hospital the cardiac arrest. Mrs. Mckeon was sitting with her hospice patient, when she suddenly became short of breath. Initially, 911 was called. Suddenly the Mrs. Mckeon collapsed. The hospice patient called 911 once again. EMS arrived and patient required chest compressions immediately. Patient was brought into the emergency room and there were able to finally established a pulse. Patient was started on numerous medications in the emergency room. Patient has started becoming hypotensive. Patient was admitted to the ICU. Initially, we stop the Versed said and fentanyl and added dopamine to patient's Levophed. Patient was given IV Hydrocortisone as well as an additional bolus. Patient blood pressure has improved. Currently systolic blood pressure is 150s. Will go ahead and start weaning off the dopamine drip and then also the Levophed drip. Pulmonary and Neurology consultation as well. Patient has a history of cardiac arrest x2 according to family. Both times patient has done well. The initial time patient required a double bypass. The 2nd time, patient had a stroke. Patient is still but her does not live with her anymore. They have 3 children who are present as well. They are on the same page that if they do not think patient will get better than they do not want anything further done. At this time will hold off on making her a DNR until we get more information regarding patient. 22:32 This 57 yrs old Female presents to ER via EMS with complaints of CPR. jr8 22:32 Preceding the arrest, the patient was found down by employer family. The arrest jr8 occurred place of work. Pre-hospital course: The arrest was not witnessed by others. Bystanders at the scene performed CPR. EMS care prior to arrival: initiation of ACLS, peripheral IV, was successfully placed. oxygen, by BVM to assist ventilations. mickie tube. backboard, ACLS details: Initial rhythm was asystole. Medications given by EMS prior to arrival - Epinephrine IV x 6 doses, Response to therapy: return of rhythm, return of pulse. It is unknown whether or not the patient has had similar symptoms in the past. It is unknown whether or not the patient has recently seen a physician. 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 Was found down in kitchen. Unknown downtime. Was able to achieve ROSC . Allergies No Allergy Information Available Allergy (Unverified 01/07/18 03:46) Unknown Home medications list reviewed: Yes - Past Medical/Surgical History Diabetic: No -: [place] -: COPD -: Respiratory failure -: Double bypass surgery - Family History Mother Medical History: Heart disease Father Medical History: Hypertension, Lung disease, Diabetes, Stroke, Cancer - Social History Smoking Status: Unknown if ever smoked Alcohol use: No CD- Drugs: No Caffeine use: Yes Place of Residence: Home Review of Systems is unable to be obtained (AMS) Physical Examination Temp Pulse Resp BP Pulse Ox 101.1 F H 117 H 24 H 109/66 94 01/07/18 12:00 01/07/18 13:00 01/07/18 13:00 01/07/18 13:00 01/07/18 12:00 General: Other (Encephalopathy) HEENT: Atraumatic, Mucous membr. moist/pink Neck: Supple Respiratory: Clear to auscultation bilaterally, Normal air movement Cardiovascular: No edema, Regular rate/rhythm, No rubs Gastrointestinal: Soft and benign, Non-distended, No guarding Musculoskeletal: No clubbing, No contractures Integumentary: No rashes, No cyanosis Neurological: Abnormal cranial nerve function, Abnormal affect Urinary: Mitchell catheter Laboratory Data (last 24 hrs) 01/06/18 20:49: PT 12.3, INR 1.04, APTT 34.2 01/06/18 20:49: WBC 14.1 H, Hgb 14.1, Hct 43.0, Plt Count 212 01/06/18 20:49: B-Natriuretic Peptide 150 H 01/06/18 20:49: Sodium 144, Potassium 5.3 H, BUN 16, Creatinine 1.51 H, Glucose 230 H, Magnesium 2.2, Total Bilirubin 0.5, AST 166 H, ALT 76 H, Alkaline Phosphatase 64 Imagings Data: EXAM DESCRIPTION: Mitchell Single View01/06/2018 9:13 pm CLINICAL HISTORY: Chest pain COMPARISON: none FINDINGS: The lungs appear clear of acute infiltrate. The heart is normal size. The lungs are hyperaerated Postsurgical changes involve the chest. An endotracheal tube has its tip several centimeters above the marline. An orogastric tube is present within the stomach. The tip is not included in the field of view and likely either lies within distal stomach or proximal duodenum Conclusions/Impression: A/ PIYUSH improving. Hyperkalemia resolved. Lactic acidosis, improving. Cardiac arrest complicated by ischemic encephalopathy. Acute respiratory failure sp intubation. Acute hepatitis. Hypocalcemia. Hypomagnesemia. P/ Continue current POC and Medications. Poor prognosis in the setting of ischemic brain injury. IVF adjusted. No NSAIDs. AM labs. Daily weight. Thank you kindly for the consultation. Case discussed with Dr. Conde. Critical Care: Yes (30min)
--- NOTE | 2018-01-07 16:19 | EEG ---
CHART: [id number] TEST ID#: [id number] DATE OF STUDY: 01/07/2018 THE EEG WAS RECORDED PORTABLE IN THE ICU ON A 14 CHANNEL MACHINE. ELECTRODES WERE APPLIED IN THE USUAL MANNER USING THE INTERNATIONAL 10-20 SYSTEM. THE EEG BACKGROUND CONSISTS OF DIFFUSELY EXPRESSED MODERATE VOLTAGE SPIKE AND WAVES LASTING 1-3 SECONDS BY 1 TO 5 SECONDS EPISODES OF MARKED GENERALIZED VOLTAGE ATTENUATION. NO EPILEPTIFORM ACTIVITY APPEARS. SLEEP DID NOT OCCUR. HYPERVENTILATION WAS NOT PERFORMED. PHOTIC STIMULATION WAS NOT PERFORMED. IMPRESSION: THIS IS A SEVERELY ABNORMAL EEG DUE TO A BURST-SUPPRESSION BACKGROUND. IN THE ABSENCE OF DEEP SEDATING MEDICATION SEVERE HYPOTHERMIA AND MARKED METABOLIC ABNORMALITIES THIS FINDING INDICATES A VERY POOR PROGNOSIS FOR RECOVERY AFTER PROLONGED CARIOPULMONARY RESUSCITATION.
[2018-01-07] MEDS: NACHLORIDE 0.45% 1,000 ML IV SCH (16:43)
[2018-01-07] MEDS: ARFORMOTEROL TARTRATE 15 MCG/2 ML VIAL.NEB NEB SCH (19:35)
--- NOTE | 2018-01-07 22:48 | CON ---
Reason For Consultation: Consultation called due to myoclonic or seizure-like activity after prolong ed cardiac resuscitation. History Of Present Illness: Ms. Mckeon is a 57-year-old patient, who has multiple cardiova scular risk factors including prior double bypass surgery, myocardial infarctions, 2 episodes of prio r resuscitation, chronic obstructive pulmonary disease, respiratory failure, and chronic heart diseas e, who comes in after a prolonged resuscitation. She was sitting with her hospice patient and she be came short of breath suddenly on the 1st. The patient suddenly collapsed and emergency services were contacted. She was worked on for about 40 minutes before a pulse was restored. She was brought int [facility], where a head CT scan did not show any acute ischemic or hemorrhagic change. T he earliest blood gas on record was pH of 7.22, pO2 of 553, and pCO2 of 62.2. Her lactic acid level was elevated at 98.3, potassium elevated at 5.3, creatinine 1.5. The patient since resuscitation has had continuous myoclonic jerking activity in the face, arms, and legs along with body. She did rece alexi multiple medications including Versed, Ativan, and a 1000 mg dosage of Keppra. She has also rece ived fosphenytoin 1000 mg with little change in her myoclonic activity. She is intubated and in the ICU. The patient remains unresponsive to tactile and verbal stimulation and breaths mildly over the ventil ator. Past Medical History: As indicated above. Family History: Heart disease in mother and father with hypertension, lung disease, stroke, cancer a long with diabetes. Social History: Smoked in the past. No recent alcohol use. The patient resides at home. Allergies: NO KNOWN DRUG ALLERGIES. Medications: Currently Brovana 15 mcg nebulizer twice daily, dopamine 400 mg in 250 mL at rate requi red to maintain blood pressure, Lovenox 40 mg subcutaneously daily, fentanyl 25 mcg IV every 4 hours, hydrocortisone 50 mg every 12 hours nebulizer, Atrovent 0.5 mg nebulizer every 6 hours, Keppra 500 m g every 12 hours, thiamine 100 mg IV daily. Review of Systems: Not possible. Physical Examination: Vital Signs: Blood pressure 152/82, pulse up to 122, temperature 101.1, respiratory rate 16, oxygen saturation 97%, weight 274 pounds, height 5 feet 3 inches. General: Ms. Mckeon is intubated and exhibiting continues myoclonic jerking activity, no glow in the eyes, closure jaw chewing type activity, and with shaking clinically of the arms and legs. HEENT: She is otherwise normocephalic and atraumatic. Sclerae anicteric. Neck: Supple. Respiratory: She has good air movement. Extremities: Show no edema or cyanosis. Neurologic: She is unresponsive to verbal and tactile stimulation. Cranial nerve examination reveal ed no corneal reflex. She does have slightly responsive right pupil. No responsive activity noted i n the left pupil with bright light. She does not have a doll's eye response and she does not have vi sual threat response. The patient did not have gag response. Her motor examination shows normal ton e in the arms and legs with the myoclonic jerking. Sensory exam unable to elicit reflexes and absent in upper and lower extremities. Unable to assess gait and coordination. Laboratory Studies: White blood cell count 19.1 with 91.5% neutrophils, hemoglobin 13.3, hematocrit 40, platelets 184. INR 1.04. Most recent blood gas: PH 7.35, pCO2 41.1, pO2 164. Chemistries: So dium 144, potassium 5.3, chloride 105, carbon dioxide 23, BUN 16, creatinine 1.51, glucose 195. Lact ic acid 98.3. Urinalysis shows 1+ blood, 2+ protein. Echocardiogram shows an ejection fraction that is normal, no abnormalities, although study was reported as technically difficult. Electroencephalo gram shows burst suppression pattern with bursts of sharp and spike activity from 1 to 2 second in du ration by 1-5 seconds of generalized marked voltage attenuation. Assessment: Ms. Mckeon is a 57-year-old patient with severe hypoxic ischemic encephalopathy with rajendra clonic jerking corresponding to sharp wave activity and spike activity with suppression interspersed. The patient's clinical examination and EEG are consistent with severe hypoxic ischemic injury with little chance of meaningful recovery. This was communicated with the patient's family in the ICU fam kishor room. The patient's family will decide on removing her sustaining tube given the patient's very poor prognosis for any form of recovery. Plan: Now we recommend continue supportive care until the patient's daughter comes in [place] to see her and the patient's other family members were also attempting to visit with the patient. Recommend that the patient to be removed from life-sustaining efforts as she actually in her wishes have not wanted to be on tubes for sustaining life if otherwise she is unable to recover. No further neurological evaluation required at this point. AMPARO/FRENCH Voice ID: [id number] Report ID: [id number]
[2018-01-08] MEDS: IPRATROPIUM BROM 0.5MG/2.5ML NEB SCH ×4 (00:50→20:00)
[2018-01-08] MEDS: ALBUTEROL 2.5 MG/3 ML NEB SOL NEB SCH ×4 (00:50→20:00)
[2018-01-08] MEDS: NACHLORIDE 0.45% 1,000 ML IV SCH ×2 (02:46→12:44)
[2018-01-08] MEDS: FENTANYL CITR 100 MCG/2 ML IV PRN ×3 (05:00→20:31)
[2018-01-08] MEDS: levETIRAcetam 500 MG in NA CHLORIDE 0.9% 100 ML IV SCH ×2 (05:35→17:43)
[2018-01-08] MEDS: MIDAZOLAM HCL 100 MG in NA CHLORIDE 0.9% 80 ML IV PRN (06:36)
[2018-01-08] MEDS: ARFORMOTEROL TARTRATE 15 MCG/2 ML VIAL.NEB NEB SCH ×2 (07:50→20:00)
[2018-01-08] MEDS: HYDROCORTISONE SUC 100 MG INJ IV SCH ×2 (08:29→21:00)
[2018-01-08] MEDS: THIAMINE 200 MG/2 ML INJ IVP SCH (08:29)
[2018-01-08] MEDS: ENOXAPARIN 40 MG/0.4 ML SQ SCH (08:30)
--- NOTE | 2018-01-08 15:55 | P.PN ---
Subjective Date of Service: 01/08/18 Primary Care Provider: unknown Chief Complaint: Cardiac arrest Subjective: Other (Patient intubated at this time. Patient appears comfortable) Physical Examination - Vital Signs Temperature: 99.8 F Blood Pressure: 134/92 Pulse: 116 Respirations: 14 Pulse Ox (%): 98 - Physical Exam General: Other (Patient intubated and sedated at this time. Patient appears comfortable) Neck: Supple Respiratory: Clear to auscultation bilaterally, Normal air movement Cardiovascular: Abnormal pulses (Tachycardia noted) Gastrointestinal: Soft and benign, Non-distended Musculoskeletal: No erythema, No tenderness, No warmth Neurological: Other (Intubated) Urinary: Mitchell catheter Rectal: Other (Rectal tube in place) - Studies Microbiology Data (last 24 hrs): 01/06/18 23:15 Blood - Blood Gram Stain - Final Medications List Reviewed: Yes Assessment & Plan - Problems (Diagnosis) (1) Seizure Current Visit: Yes Status: Acute Plan: Patient with no prior history of seizure disorder. Case discussed with family. Neurology has evaluated the patient. Patient likely had hypoxic ischemic encephalopathy after CPR. Poor prognosis noted. Case discussed at length with family. Patient did not want to be on life support if her condition deteriorated. Advanced directives were addressed in detail with the family. All are in agreement to have the patient DNR. All are also in agreement to withdraw all care later tonight. This will be done once all the family has come to visit the patient. Family requests to continue with comfort measures. Family requests no need for further lab draw (2) Anoxic encephalopathy Current Visit: Yes Status: Suspected Plan: Continue as above. (3) CAD (coronary artery disease) of bypass graft Onset Date: 01/07/18 Current Visit: Yes Status: Chronic Plan: Patient with history of CAD. Will continue monitor closely. Qualifiers: [place] vs. transplanted heart: unspecified whether [place] or transplanted heart Associated angina: angina presence unspecified Qualified Code(s): I25.810 - Atherosclerosis of coronary artery bypass graft(s) without angina pectoris (4) Cardiac arrest Onset Date: 01/07/18 Current Visit: Yes Status: Acute Plan: Patient presented with cardiac arrest. Patient was initially in asystole. She was given several rounds of epinephrine. Patient now intubated. Will continue with above plan of care. (5) HTN (hypertension) Onset Date: 01/07/18 Current Visit: Yes Status: Chronic Plan: Will provide medication as needed. Qualifiers: Hypertension type: essential hypertension Qualified Code(s): I10 - Essential (primary) hypertension (6) Acute renal failure Current Visit: Yes Status: Acute Plan: Patient with acute renal failure, will continue with IV fluids. Nephrology consulted to further address. Qualifiers: Acute renal failure type: unspecified Qualified Code(s): N17.9 - Acute kidney failure, unspecified (7) Elevated liver function tests Current Visit: Yes Status: Acute Plan: Elevated liver function elevated. (8) COPD (chronic obstructive pulmonary disease) Current Visit: Yes Status: Chronic Plan: Patient with history of COPD. Will provide medication. Patient currently intubated at this time. Will discuss further with pulmonology. Qualifiers: COPD type: chronic bronchitis (9) Hyperkalemia Current Visit: Yes Status: Acute Plan: Will recheck and address appropriately. Discharge Plan: Other Plan to discharge in: Unknown Time Spent Managing Pts Care (In Minutes): 55
[2018-01-08] MEDS ORDERED: MORPHINE 2 MG/ML SYR IV PRN (18:36)
[2018-01-08] MEDS ORDERED: LORazepam 2 MG/ML VIAL IV PRN (18:37)
[2018-01-09 04:08] LABS: HBsAG Nonreactive (Nonreactive); Hepatitis A IgM Antibody Nonreactive
--- NOTE | 2018-01-09 16:04 | P.DS ---
Admission Date: 01/07/18 Discharge Date: 01/08/18 Primary Care Provider: unknown Disposition: Reason for Admission: Cardiac arrest Consultations: Pulmonary-Dr. Baca Neurology-Dr. Marion Nephrology-Dr. Espinosa - Problems (1) Seizure Status: Acute (2) Anoxic encephalopathy Status: Suspected (3) CAD (coronary artery disease) of bypass graft Onset Date: 01/07/18 Status: Chronic Qualifiers: [place] vs. transplanted heart: unspecified whether [place] or transplanted heart Associated angina: angina presence unspecified Qualified Code(s): I25.810 - Atherosclerosis of coronary artery bypass graft(s) without angina pectoris (4) Cardiac arrest Onset Date: 01/07/18 Status: Acute (5) HTN (hypertension) Onset Date: 01/07/18 Status: Chronic Qualifiers: Hypertension type: essential hypertension Qualified Code(s): I10 - Essential (primary) hypertension (6) Acute renal failure Status: Acute Qualifiers: Acute renal failure type: unspecified Qualified Code(s): N17.9 - Acute kidney failure, unspecified (7) Elevated liver function tests Status: Acute (8) COPD (chronic obstructive pulmonary disease) Status: Chronic Qualifiers: COPD type: chronic bronchitis (9) Hyperkalemia Status: Acute (10) History of CVA (cerebrovascular accident) Status: Chronic Brief History of Present Illness: 57-year-old female presented to the emergency room in cardiac arrest. Patient has multiple risk factors including CAD with previous CABG, previous ME, previous prior resuscitation, history CVA, COPD, hypertension. The patient was apparently sitting with her hospice patient when she became short of breath. She collapsed. EMS was called. There was an unknown time. Before EMS arrived and CPR was started. Some estimates are between 10 and 20 min. EMS continued CPR. She was worked on for about 40 min before pulse was restored. She was brought to the hospital. CT scan showed no of acute ischemic event. Patient presented with acute renal failure, metabolic acidosis. After resuscitation the patient had myoclonic jerking activity in the face, arms and legs. Seizure disorder was likely. The patient became hypotensive in the emergency room. She required IV fluids and vasopressors. The patient was admitted and evaluated by multiple specialists including pulmonology, nephrology, and neurology. Hospital Course: During her hospitalization her condition appeared grave. Patient was evaluated by pulmonology, nephrology and neurology. Patient was eventually weaned off vasopressors. The patient was started on anti seizure medication. This eventually improved on sedation medication. An EEG was performed along with neurological evaluation. EEG was abnormal showing burst suppression background. Findings indicated a very poor prognosis for recovery after prolonged CPR resuscitation. Patient suffered hypoxic, ischemic encephalopathy after cardiopulmonary arrest. Patient likely had fatal arrhythmia especially in light of her multiple medical issues including CAD with previous ME and CABG , history of CVA, COPD, and hypertension. Her case was discussed in detail with family. Family understood that the patient never wanted to be on life support. Advanced directives were addressed in detail with the family present. Risks and benefits were addressed. Family decided to keep the patient DNR. Further care was addressed with the family in detail. After review, family decided to withdraw all life support. Case was discussed in detail with pulmonology, neurology and nephrology. All were in agreement with the family states lesion. Patient was eventually taken off life support. The patient later . Vital Signs/Physical Exam: Temp Pulse Resp BP Pulse Ox 99.2 F 100 H 14 99/72 98 01/08/18 19:00 01/08/18 19:00 01/08/18 19:00 01/08/18 19:00 01/08/18 19:00 Other Physical/Emotional Findings: Patient seen earlier in the day on life support. Patient after life-support removed Laboratory Data at Discharge: WBC 19.1 K/uL (4.3-10.9) H D 01/07/18 11:01 Hgb 13.3 g/dL (12.0-15.0) 01/07/18 11:01 Hct 40.0 % (36.0-45.0) 01/07/18 11:01 Plt Count 184 K/uL (152-406) 01/07/18 11:01 PT 12.3 SECONDS (9.5-12.5) 01/06/18 20:49 INR 1.04 01/06/18 20:49 APTT 34.2 SECONDS (24.3-36.9) 01/06/18 20:49 Sodium 144 mEq/L (135-145) 01/07/18 11:01 Potassium 3.9 mEq/L (3.6-5.0) 01/07/18 11:01 BUN 20 mg/dL (6-20) 01/07/18 11:01 Creatinine 1.34 mg/dL (0.44-1.00) H 01/07/18 11:01 Glucose 142 mg/dL (65-120) H 01/07/18 11:01 Phosphorus 3.6 mg/dL (2.5-4.3) 01/07/18 11:01 Magnesium 2.1 mg/dL (1.8-2.5) D 01/07/18 19:47 Total Bilirubin 0.8 mg/dL (0.3-1.2) 01/07/18 11:01 AST 222 IU/L (10-42) H 01/07/18 11:01 ALT 87 IU/L (10-60) H 01/07/18 11:01 Alkaline Phosphatase 50 IU/L (42-121) 01/07/18 11:01 B-Natriuretic Peptide 150 pg/ml (<=100) H 01/06/18 20:49 Patient Discharge Instructions: Patient after life-support removed. May she rest in peace. Time spent managing pt's care (in minutes): 55
== END 2018-01-08 22:20 | disposition expired | DRG 296 ==
LOC: ER 20:42 → ERHOLD 01-07 00:29 → 3RD-ICU 01-07 01:53
PROVIDERS: ADMIT Hospitalist; ATTEND Family Medicine
PROC: 0BH17EZ Insertion of Endotracheal Airway into Trachea, Via Natural or Artificial Opening (ICD-10-PCS; principal; 2018-01-07)
PROC: 5A1945Z Respiratory Ventilation, 24-96 Consecutive Hours (ICD-10-PCS; 2018-01-07)
DX: I46.9 Cardiac arrest, cause unspecified (principal); G93.49 Other encephalopathy; J96.00 Acute respiratory failure, unspecified whether with hypoxia or hypercapnia; I25.810 Atherosclerosis of coronary artery bypass graft(s) without angina pectoris; G93.1 Anoxic brain damage, not elsewhere classified; N17.9 Acute kidney failure, unspecified; E87.2 Acidosis; I95.9 Hypotension, unspecified; J42 Unspecified chronic bronchitis; E87.5 Hyperkalemia; G40.909 Epilepsy, unspecified, not intractable, without status epilepticus; I10 Essential (primary) hypertension; R79.89 Other specified abnormal findings of blood chemistry; Z86.74 Personal history of sudden cardiac arrest; I25.2 Old myocardial infarction; Z86.73 Personal history of transient ischemic attack (TIA), and cerebral infarction without residual deficits
CPT/HCPCS: 31500; 36415; 51702; 70450; 71045; 72125; 76770; 80048; 80053; 80074; 80076; 81003; 82550; 82553; 82805; 82962; 83605; 83735; 83880; 84100; 84484; 85025; 85610; 85730; 87040; 87205; 93005; 93306; 94002; 94003; 95816; 99291; 99292; J0330; J1265; J1650; J1720; J1953; J2250; J2405; J2543; J2550; J3010; J3370; J3411; J3475; J7030; J7060; J7605; Q2009